=== PATIENT | male | born 1975 | race American Indian/Alaskan Native ===

== ENCOUNTER 2020-12-16 02:43 | Emergency (ER) | payer OTHER ==
--- NOTE | 2020-12-16 03:30 | Emergency Department Report ---
Upper Extremity - [facility] Chief Complaint: Extremity Injury, Upper Stated Complaint: INJURED RIGHT UPPER ARM Time Seen by Provider: 12/16/20 03:27 Upper Extremity: Right Shoulder Occurred When: Today Mechanism: Twist Severity: severe Symptoms: Yes Pain with Movement, Yes Limited Range of Movement, No Deformity, No Numbness, No Weakness, No Swelling, No Bruising/Ecchymosis, No Laceration or Abrasion Other History: Patient is a 45-year-old male who presents emergency room with complaints of right shoulder pain. Patient is a [employer]. Patient was at work when this happened. 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 Patient states that he was helping change the tire. Patient states he was getting along the top and he was putting a lot of pressure and felt a pop in his right shoulder. Patient states he had severe pain instantly. Patient states the pain is a 10 out of 10. But states the pain is better with rest and worse with movement. Patient states she is able to move his shoulder but it has extreme pain. Patient denies other injury. Patient denies head injury. Patient denies loss of consciousness. Patient denies fall. Patient denies recent travel. Patient denies recent international travel. Patient denies exposure to the novel coronavirus. Patient denies sick contacts. Patient denies fever and chills. Patient denies cough. Patient denies diarrhea. Patient denies coming in contact with anybody with symptoms of the novel coronavirus. ED Review of Systems ROS: Stated complaint: INJURED RIGHT UPPER ARM Other details as noted in HPI Constitutional: denies: chills, fever Eyes: denies: eye pain, eye discharge, vision change ENT: denies: ear pain, throat pain Respiratory: denies: cough, shortness of breath, wheezing Cardiovascular: denies: chest pain, palpitations Endocrine: no symptoms reported Gastrointestinal: denies: abdominal pain, nausea, diarrhea Genitourinary: denies: urgency, dysuria Musculoskeletal: denies: back pain, joint swelling, arthralgia Skin: denies: rash, lesions Neurological: denies: headache, weakness, paresthesias Psychiatric: denies: anxiety, depression Hematological/Lymphatic: denies: easy bleeding, easy bruising ED Past Medical Hx - Past Medical History Previous Medical History?: Yes Hx Hypertension: Yes Hx Diabetes: Yes - Surgical History Past Surgical History?: No - Family History Family history: no significant - Social History Smoking Status: Never Smoker Substance Use Type: None - Medications Home Medications: Home Medications Medication Instructions Recorded Confirmed Last Taken Type HYDROcodone/APAP 5-325 [[place] 1 each PO Q4HR PRN #15 tablet 12/16/20 Unknown Rx 5/325] Upper Extremity Exam - Exam General: Vital signs noted. No distress. Alert and acting appropriately. Head and Torso: No HEENT Abnormality, No Neck Tenderness, No Chest/Lungs Abnormality, No Abdominal Tenderness, No Back Tenderness Shoulder Exam: Yes Shoulder Tenderness (Right shoulder), No Clavicle Tenderness, No Normal Range of Motion in Shoulder (On the right), No Shoulder Deformity, No AC Joint Tenderness Arm Exam: No Arm/Humerus Tenderness, No Arm Deformity Elbow: No Elbow Tenderness, No Normal Range of Motion in Elbow, No Elbow Deformity Forearm: No Forearm Tenderness, No Forearm Deformity, No Pain with Pronation, No Pain with Supination Wrist: Yes Normal ROM in Wrist, No Wrist Tenderness, No Wrist Deformity, No Snuffbox Tenderness, No Pain with Axial Thumb Compression Hand: Yes Normal ROM in Digit(s), No Hand Tenderness, No Hand Deformity, No Digit Tenderness, No Digit(s) Deformity, No Tendon Dysfunction CMS Exam: No Broken Skin, No Normal Distal Pulses, No Normal Capillary Refill, No Normal Distal Sensation ED Course - Reevaluation(s) Reevaluation #1: Patient will be given Tylenol for his pain. I discussed all results and clinical findings with patient. I discussed plan of care with patient. Patient agrees with plan of care. Patient is stable for discharge. Patient will be discharged home. Patient given discharge instructions. Patient voiced understanding of discharge instructions. 12/16/20 04:43 ED Medical Decision Making - Radiology Data Radiology results: report reviewed, image reviewed interpreted by me: Right shoulder x-ray: No fracture, no dislocation, no acute findings. Right shoulder 3 views INDICATION: Pain FINDINGS: No acute fracture dislocation. Mild AC degenerative change and hypertrophy. - Medical Decision Making Patient is a 45-year-old male that was trying to change a tire and was trying to take off the Lanoxin and heard a pop in his shoulder. Patient had instant pain. Patient's pain was severe. Patient's pain was better with rest and worse with movement. Patient is also please observe. Patient has a past medical history of diabetes hypertension. Patient had a x-ray done which was negative for acute findings. I personally reviewed the x-ray. Patient given Tylenol for pain. Patient stable for discharge. Patient will be discharged home. Patient not require any further emergency medical service. Patient not require inpatient service. Patient referred to a orthopedist. - Differential Diagnosis Sprain, strain, fracture, rotator cuff injury Critical care attestation.: If time is entered above; I have spent that time in minutes in the direct care of this critically ill patient, excluding procedure time. ED Disposition Clinical Impression: Sprain of right shoulder Qualifiers: Encounter type: initial encounter Shoulder sprain type: unspecified sprain Qualified Code(s): S43.401A - Unspecified sprain of right shoulder joint, initial encounter Right shoulder pain Qualifiers: Chronicity: acute Qualified Code(s): M25.511 - Pain in right shoulder Disposition: DC-01 TO HOME OR SELFCARE Is pt being admited?: No Does the pt Need Aspirin: No Condition: Stable Instructions: Shoulder Pain, Elastic Bandage and RICE Therapy, Shoulder Sprain Additional Instructions: Patient to follow-up with primary care in 2 to 3 days. Patient to follow-up with [employer]. in 2 to 3 days. Patient to follow-up with orthopedist in 2 to 3 days. Patient to rest. Patient to increase water. Patient to avoid strenuous exercise or heavy lifting until cleared by orthopedist and primary care. Patient to take Tylenol or ibuprofen as needed for pain. Patient to take meds as directed. Patient to return to the ER if condition worsens, changes or new symptoms arise. Prescriptions: HYDROcodone/APAP 5-325 [[place] 5/325] 1 each PO Q4HR PRN #15 tablet PRN Reason: Pain Referrals: IRIS GONZALEZ MD [Staff Physician] - 2-3 Days Time of Disposition: 04:46
--- NOTE | 2020-12-16 04:26 | XRay Report ---
Right shoulder 3 views INDICATION: Pain FINDINGS: No acute fracture dislocation. Mild AC degenerative change and hypertrophy. Signer Name: Dov Esqueda MD Signed: 12/16/2020 4:22 AM Workstation Name: [id number]
[2020-12-16] MEDS ORDERED: ACETAMINOPHEN 500 MG TAB PO ONE (04:43)
[2020-12-16 04:57] VITALS: BP 138/84
== END 2020-12-16 05:00 | disposition home or self-care (01) ==
LOC: ED 02:43
DX: S43.491A Other sprain of right shoulder joint, initial encounter (principal); I10 Essential (primary) hypertension; E11.9 Type 2 diabetes mellitus without complications; Z79.899 Other long term (current) drug therapy; X50.1XXA Overexertion from prolonged static or awkward postures, initial encounter; Y93.89 Activity, other specified; Y92.89 Other specified places as the place of occurrence of the external cause; Y99.8 Other external cause status
CPT/HCPCS: 99283